=== PATIENT | male | born 1935 | race Caucasian/White ===

== ENCOUNTER 2016-07-06 10:58 | Outpatient (CLI) | payer OTHER ==
--- NOTE | 2016-07-06 11:56 | DIAGNOSTIC IMAGING REPORT ---
PROCEDURE: XR CERVICAL SPINE 4 OR 5 VIEW INDICATION: ACUTE NECK PAIN TECHNIQUE: Five views. COMPARISON: None. FINDINGS: Fusion from C3-C6. There is spondylosis at C6-7 with disc space narrowing and the development of a posterior osteophytic ridge. The neural foramina are open. There is no fracture or dislocation P IMPRESSION: 1. Fusion C3-C6 2. 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
== END 2016-07-06 23:00 ==
LOC: XR SRH 10:58
DX: M47.812 Spondylosis without myelopathy or radiculopathy, cervical region (principal); Z98.1 Arthrodesis status